=== PATIENT | male | born 1980 | race African-American/Black ===

== ENCOUNTER 2018-12-31 13:21 | Emergency (ER) | payer BC ==
[~2018-12-31] VITALS: Ht 170.2 cm; Wt 73.0 kg
[2018-12-31 13:26] VITALS: BP 134/85
== END 2018-12-31 15:03 | disposition left against medical advice (07) ==
LOC: ER 13:21
DX: R07.89 Other chest pain (principal); Z53.21 Procedure and treatment not carried out due to patient leaving prior to being seen by health care provider
CPT/HCPCS: 93005